=== PATIENT | female | born 2005 | race Caucasian/White ===

== ENCOUNTER 2023-08-21 11:16 | Emergency (ER) | payer OTHER, SELFPAY ==
[2023-08-21 11:20] VITALS: BP 117/69
--- NOTE | 2023-08-21 11:56 | ED.GENMED ---
History of Present Illness
General
Chief Complaint: Musculo-Skeletal Complaint
Source: patient
Exam Limitations: none
Time Seen by Provider: 08/21/23 11:43
Nursing documentation reviewed up to this point in time: agreed with
Travel History
Have you had any contact with someone who has COVID-19?: No
Do you have any symptoms of coronavirus? Fever > 100 degrees, chills, cough, shortness of breath, sore throat, loss of taste or smell, muscle aches, or headache?: No
History of Present Illness
History of Present Illness:
17-year-old female presenting to the emergency department 2 days after tripping down 1 step landing on her right wrist. She has had discomfort to her right wrist since. She is requesting a cast at this time. Denies any additional injuries denies
head trauma denies neck pain denies numbness or weakness.
Review of Systems
Review of Systems
Allergies reviewed?: Yes
All Other Systems: ROS reviewed and negative except as documented in HPI and ROS
Phy Exam
Physical Exam
Physical Exam:
GENERAL: Alert , in no apparent distress
EYE: pupils equal and reactive
NECK: Supple, no significant adenopathy.
ENT: o/p clr, mmm.
CARDIAC: Regular rate and rhythm .
LUNGS: Clear breath sounds bilaterally, no acute respiratory distress, no wheezes/rales/rhonchi
ABDOMEN: Soft, without focal tenderness, no r/g, no cvat
NEUROLOGICAL: Alert and oriented, no focal neuro deficits
SKIN: Warm and dry, skin intact.
MUSCULOSKELETAL: Patient unwilling to remove her Velcro splint to her right wrist for me to assess. Well perfused.
PSYCH: Normal and appropriate interaction.
Course
Orders/Labs/Results
Orders:
Orders
08/21/23 11:22
Wrist, Right 3 Views [CR Wrist - Right Min 3 Views] Urgent
Comment:
Reason For Exam: pain
Vital Signs
Initial and Last Documented VS:
Initial Vital Signs
Temp Pulse Resp BP Pulse Ox
97.4 F 72 18 117/69 99
08/21/23 11:20 08/21/23 11:20 08/21/23 11:20 08/21/23 11:20 08/21/23 11:20
Last Documented Vital Signs
Temp Pulse Resp BP Pulse Ox
97.4 F 72 18 117/69 99
08/21/23 11:20 08/21/23 11:20 08/21/23 11:20 08/21/23 11:20 08/21/23 11:20
MDM/Problems Addressed
MDM/Problems Addressed:
17-year-old female presenting to the emergency department after tripping down a step landing on her right wrist 2 days ago. Ongoing wrist discomfort since. Wearing a Velcro splint upon arrival. Patient unwilling to remove the splint for further
assessment. We did do an x-ray that showed a distal radius fracture with acceptable alignment. It was recommended to the patient to place a sugar-tong splint. She refused this and claims that she would only accept a cast that we were unwilling
and unable to make at this time in the ER. She was advised that the splint that she is wearing is not the appropriate splint and that she should reconsider leaving at this time she claims at this point she would like to leave and does not want any
further treatment. She was given a CD and will follow-up she did not except any information for follow-up.
*Critical Care Note
Total Time (30-74mins, 75-104mins- exclusive of procedures): Not Applicable
ED Attending Note
-
Portions of this chart may have been created with voice recognition software.� Occasional wrong word or��sound alike� substitutions may have occurred due to the inherent limitations of voice recognition software.
Discharge Plan
Departure
Patient Disposition: Home (Routine Discharge)
Date of Disposition: 08/21/23
Time of Disposition: 12:00
Patient with high blood pressure during this ER visit?: No
Condition: Good
Covid-19: Not Applicable
Discharge Problem:
Distal radius fracture, right
Instructions: Wrist Fracture (DC)
Referrals:
NONE,* [Family Provider] -
Eyd Paul MD [Active] - Follow up in 5-7 days
Activity Restrictions/Additional Instructions:
You have a broken wrist. There is a fracture to the distal radius. It is recommended that you wear a sugar-tong splint that eliminates the possibility of wrist flexion and extension as well as rotation. Please follow-up with Ortho abstain from
excessive use of the upper until further assessment and recommendation.
Interventions
Interventions:
*Risk Screen - Suicide Last Done: 08/21/23 11:20
*General Assessment Last Done: 08/21/23 11:20
*Neglect/Abuse Screening Last Done: 08/21/23 11:20
*ED COVID-19 Vaccine History Last Done: 08/21/23 11:20
== END 2023-08-21 12:05 | disposition home or self-care (01) ==
LOC: EMR 11:16
PROVIDERS: EMERGENCY PHYSICIAN Emergency Medicine
DX: S52.571A Other intraarticular fracture of lower end of right radius, initial encounter for closed fracture (principal); W10.9XXD Fall (on) (from) unspecified stairs and steps, subsequent encounter
CPT/HCPCS: 99283; 29125; 73110